=== PATIENT | female | born 1955 | race Caucasian/White ===

== ENCOUNTER → 2020-11-28 | Outpatient (CLI) | payer OTHER ==
[~2020-11-28] MED LIST: DECADRON6 MG PO; ELIQUIS2.5 MG PO; GLUCOSAMINE1000 MG PO; SINGULAIR10 MG PO; THERAGRAN M TAB1 EA PO; VENTOLIN HFA 66.7 GM INH; VITAMIN C250 MG PO; VITAMIN D310 MC2 PO; ZITHROMAX250 MG PO
== END ==
LOC: EXRD 10:24
DX: Z09 Encounter for follow-up examination after completed treatment for conditions other than malignant neoplasm (principal); Z86.16 Personal history of COVID-19; J43.9 Emphysema, unspecified
CPT/HCPCS: 71046